=== PATIENT | male | born 1990 | race Caucasian/White ===

== ENCOUNTER 2017-07-10 08:52 | Emergency (ER) | payer OTHER ==
[~2017-07-10] VITALS: Ht 182.9 cm; Wt 100.2 kg
[2017-07-10] MEDS ORDERED: IV NORMAL SALINE 1,000ML 1,000 ML IV SCH (09:08)
[2017-07-10] MEDS ORDERED: KETOROLAC 15 MG/ML VIAL. ONE (09:11)
--- NOTE | 2017-07-10 09:20 | ED.ADGEN ---
Adult General HPI HPI Patient is a 27-year-old man, history of chronic low back pain after an injury that occurred in 2013, who presents to the emergency department with a complaint of nausea and vomiting that is been persistent since around 9 PM last night. Patient states that his daughter was seen several days ago for similar symptoms, and was diagnosed with food poisoning. He states his symptoms began last night, prior to that had been feeling well, last bowel movement was shortly before nausea and vomiting began, and was normal, states food and fluid , no blood or bile, patient has no surgical history. He denies any fevers, is complaining of chills, generalized body aches and malaise. Denies any abdominal pain. No diarrhea. No focal weakness, numbness, tingling, chest pain, shortness breath, sore throat rhinorrhea, injuries, recent travel or sick surgery, swelling of the extremities, rashes. Last oral intake was last night he ate pizza and then vomited back up, has been sipping on fluids today but has vomited multiple times, at least 9 since this began. Complaining of nausea currently. Review of Systems Review of Systems Constitutional: Denies fever, complaining of chills and generalized malaise. Body aches. Eyes: Denies change in visual acuity, redness, or eye pain [] HENT: Denies nasal congestion or sore throat [] Respiratory: Denies cough or shortness of breath [] Cardiovascular: No additional information not addressed in HPI [] GI: Denies abdominal pain, complaining of nausea, vomiting, no bloody stools or diarrhea. : Denies dysuria or hematuria [] Musculoskeletal: Denies back pain or joint pain . Body aches. [] Integument: Denies rash or skin lesions [] Neurologic: Denies headache, focal weakness or sensory changes [] Endocrine: Denies polyuria or polydipsia [] Current Medications Current Medications Current Medications Medications (Trade) Dose Ordered Sig/Bryn Start Time Stop Time Status Last Admin Dose Admin Ketorolac Tromethamine (Toradol) 15 mg STK-MED ONCE 07/10/17 09:11 07/10/17 09:12 DC Ondansetron HCl (Zofran Odt) 4 mg 1X ONCE 07/10/17 11:10 07/10/17 11:11 DC 07/10/17 10:45 4 MG Ondansetron HCl (Zofran) 4 mg 1X ONCE 07/10/17 09:40 07/10/17 09:41 DC 07/10/17 09:20 4 MG Sodium Chloride 1,000 ml @ 1,000 mls/hr 1X ONCE 07/10/17 10:45 07/10/17 11:44 DC Allergies Allergies Allergies Coded Allergies Type Severity Reaction Last Updated Verified No Known Drug Allergies 07/10/17 No Physical Exam Physical Exam Constitutional: Well developed, well nourished, appears uncomfortable, pale, non -toxic appearance. [] HENT: Normocephalic, atraumatic, bilateral external ears normal, oropharynx moist, no oral exudates, nose normal. [] Eyes: PERRLA, EOMI, conjunctiva normal, no discharge. [] Neck: Normal range of motion, no tenderness, supple, no stridor. [] Cardiovascular:Heart rate regular rhythm, no murmur, S1, S2, rubs or gallops. [] Lungs & Thorax: Bilateral breath sounds clear to auscultation, no wheezing, rhonchi, rales. No chest or crepitus or tenderness. [] Abdomen: Bowel sounds normal, soft, no tenderness, no rebound, rigidity, no guarding, no masses, no pulsatile masses. [] Skin: Warm, dry, no erythema, no rash. [] Back: No tenderness, no CVA tenderness. [] Extremities: No tenderness, no cyanosis, no clubbing, ROM intact, no edema. Negative Homans sign. [] Neurologic: Alert and oriented X 3, normal motor function, normal sensory function, no focal deficits noted. [] Psychologic: Affect normal, judgement normal, mood normal. [] Current Patient Data Vital Signs Vital Signs Date Time Temp Pulse Resp B/P (MAP) Pulse Ox O2 Delivery O2 Flow Rate FiO2 07/10/17 11:22 86 16 103/39 (60) 99 Room Air 07/10/17 08:52 98.7 Lab Results Laboratory Tests Test 07/10/17 09:18 07/10/17 10:25 White Blood Count 13.6 x10^3/uL (4.0-11.0) H Red Blood Count 4.93 x10^6/uL (4.30-5.70) Hemoglobin 15.1 g/dL (13.0-17.5) Hematocrit 43.8 % (39.0-53.0) Mean Corpuscular Volume 89 fL (79-100) Mean Corpuscular Hemoglobin 31 pg (25-35) Mean Corpuscular Hemoglobin Concent 34 g/dL (31-37) Red Cell Distribution Width 13.0 % (11.5-14.5) Platelet Count 223 x10^3/uL (140-400) Neutrophils (%) (Auto) 90 % (31-73) H Lymphocytes (%) (Auto) 4 % (24-48) L Monocytes (%) (Auto) 5 % (0-9) Eosinophils (%) (Auto) 1 % (0-3) Basophils (%) (Auto) 0 % (0-3) Neutrophils # (Auto) 12.2 x10^3uL (1.8-7.7) H Lymphocytes # (Auto) 0.6 x10^3/uL (1.0-4.8) L Monocytes # (Auto) 0.7 x10^3/uL (0.0-1.1) Eosinophils # (Auto) 0.1 x10^3/uL (0.0-0.7) Basophils # (Auto) 0.0 x10^3/uL (0.0-0.2) Sodium Level 138 mmol/L (136-145) Potassium Level 3.6 mmol/L (3.5-5.1) Chloride Level 103 mmol/L (98-107) Carbon Dioxide Level 27 mmol/L (21-32) Anion Gap 8 (6-14) Blood Urea Nitrogen 20 mg/dL (8-26) Creatinine 1.0 mg/dL (0.7-1.3) Estimated GFR (Cockcroft-Gault) 91.0 BUN/Creatinine Ratio 20 (6-20) Glucose Level 110 mg/dL (70-99) H Calcium Level 8.0 mg/dL (8.5-10.1) L Total Bilirubin 0.6 mg/dL (0.2-1.0) Aspartate Amino Transferase (AST) 35 U/L (15-37) Alanine Aminotransferase (ALT) 64 U/L (16-63) H Alkaline Phosphatase 37 U/L (46-116) L Total Protein 7.1 g/dL (6.4-8.2) Albumin 3.5 g/dL (3.4-5.0) Albumin/Globulin Ratio 1.0 (1.0-1.7) Lipase 85 U/L (73-393) Urine Collection Type Unknown Urine Color Maritza Urine Clarity Clear Urine pH 5.5 Urine Specific [place] 1.025 Urine Protein Neg (NEG-TRACE) Urine Glucose (UA) Neg mg/dL (NEG) Urine Ketones (Stick) Neg mg/dL (NEG) Urine Blood Neg (NEG) Urine Nitrite Neg (NEG) Urine Bilirubin Neg (NEG) Urine Urobilinogen Dipstick 0.2 mg/dL (0.2 mg/dL) Urine Leukocyte Esterase Neg (NEG) Urine RBC Rare /HPF (0-2) Urine WBC Rare /HPF (0-4) Urine Squamous Epithelial Cells Occ /LPF Urine Bacteria 0 /HPF (0-FEW) Urine Mucus Mod /LPF Urine Opiates Screen Neg (NEG) Urine Methadone Screen Neg (NEG) Urine Barbiturates Neg (NEG) Urine Phencyclidine Screen Neg (NEG) Urine Amphetamine/Methamphetamine Neg (NEG) Urine Benzodiazepines Screen Neg (NEG) Urine Cocaine Screen Neg (NEG) Urine Cannabinoids Screen Neg (NEG) Urine Ethyl Alcohol Neg (NEG) EKG EKG ECG: Rhythm strip: Heart rate 94 beats/minute, no ectopy. As interpreted by me. [] Radiology/Procedures Radiology/Procedures [][address] [address] IMAGING REPORT Signed PATIENT: TANNER GUILLEN ACCOUNT: [id number] : 1990 LOCATION: ER AGE: 27 SEX: M EXAM STATUS: PRE ER ORD. PHYSICIAN: TON MASON DO REASON: N/V PROCEDURE: ACUTE ABDOMEN SERIES Acute abdominal series with single view chest 07/10/2017 at 0928 hours Indication: Nausea and vomiting Comparison: None available Technique: Single frontal view of the chest, supine views of the abdomen and an upright abdominal film are provided. Findings: Cardiomediastinal silhouette is within normal limits. No pleural effusions, pulmonary vascular congestion or pneumothorax. The lungs are clear. Osseous structures are normal. There is no free intraperitoneal air. No dilated loops of small or large bowel. No abnormal calcifications identified within the abdomen or pelvis. Impression: No acute cardiopulmonary process. Nonobstructive bowel gas pattern. DICTATED AND SIGNED BY: JOHN LIMON MD DATE: 07/10/17932 CC: TON MASON DO ~ Course & Med Decision Making Course & Med Decision Making Pertinent Labs and Imaging studies reviewed. (See chart for details) Patient received IV fluids, antiemetics, laboratory studies, acute abdominal series. No concerning signs were identified on imaging, laboratory studies reveal a mild leukocytosis and no other concerning abnormalities. On reevaluation, after receiving 2 L of fluid, and Zofran, patient states that his lightheadedness is now resolved, and he is feeling much better. No further vomiting in the ED, states nausea significantly improved. Is tolerating small amounts of by mouth fluids.Patient does have positive history for sick contacts , discussed with the patient this may be a viral illness. Patient states he is feeling much better and is ready to go home at this time, we did discuss use of oral Zofran, Bentyl, fluids, with clear liquid diet to be advanced as tolerated , and concerning symptoms that would prompt return to the ED. Patient has plans to drive back home on Thursday, discussed the patient that if he is not improved enough to feel comfortable driving by tomorrow that he should come back to the emergency department for additional evaluation as this would indicate failure of outpatient management. Patient and family at bedside voiced understanding and agreement with these instructions and precautions, patient discharged home in stable condition with prescriptions, plan, and precautions as stated. Final Impression Final Impression [] Problems: Dragon Disclaimer Dragon Disclaimer This electronic medical record was generated, in whole or in part, using a voice recognition dictation system. Departure: Impression: Primary Impression: Nausea and vomiting Disposition: HOME, SELF-CARE Condition: IMPROVED Scripts Dicyclomine Hcl (BENTYL) 10 Mg Capsule 1 CAP PO PRN TID Y for ABD CRAMPING, #12 CAP 0 Refills Prov: TON MASON DO 07/10/17 Ondansetron Hcl (ZOFRAN) 4 Mg Tablet 4 MG PO PRN Q6-8HRS Y for NAUSEA, #12 Prov: TON MASON DO 07/10/17 TON MASON DO Jul 10, 2017 09:20
--- NOTE | 2017-07-10 09:36 | RAD ---
Acute abdominal series with single view chest 07/10/2017 at 0928 hours Indication: Nausea and vomiting Comparison: None available Technique: Single frontal view of the chest, supine views of the abdomen and an upright abdominal film are provided. Findings: Cardiomediastinal silhouette is within normal limits. No pleural effusions, pulmonary vascular congestion or pneumothorax. The lungs are clear. Osseous structures are normal. There is no free intraperitoneal air. No dilated loops of small or large bowel. No abnormal calcifications identified within the abdomen or pelvis. Impression: No acute cardiopulmonary process. Nonobstructive bowel gas pattern.
[2017-07-10] MEDS ORDERED: ONDANSETRON PF 4 MG/2 ML VIAL. IV ONE (09:40)
[2017-07-10] MEDS ORDERED: KETOROLAC 30 MG/ML VIAL. IV ONE (09:40)
[2017-07-10 09:45] LABS: ALBUMIN 3.5 g/dL (3.4-5.0); POTASSIUM 3.6 mmol/L (3.5-5.1); TOTAL BILIRUBIN 0.6 mg/dL (0.2-1.0); TOTAL PROTEIN 7.1 g/dL (6.4-8.2)
[2017-07-10 09:50] LABS: BASO % 0 % (0-3); EOS # 0.1 x10^3/uL (0.0-0.7); EOS % 1 % (0-3); HEMATOCRIT 43.8 % (39.0-53.0); HEMOGLOBIN 15.1 g/dL (13.0-17.5); LYMPH # 0.6 x10^3/uL (1.0-4.8); LYMPH % 4 % (24-48); MEAN CORPUSCULAR HEMOGLOBIN 31 pg (25-35); MEAN CORPUSCULAR HGB CONC 34 g/dL (31-37); MEAN CORPUSCULAR VOLUME 89 fL (79-100); MONO # 0.7 x10^3/uL (0.0-1.1); MONO % 5 % (0-9); NEUT # 12.2 x10^3uL (1.8-7.7); NEUT % 90 % (31-73); PLATELET COUNT 223 x10^3/uL (140-400); RED BLOOD COUNT 4.93 x10^6/uL (4.30-5.70); WHITE BLOOD COUNT 13.6 x10^3/uL (4.0-11.0)
[2017-07-10] MEDS ORDERED: IV NORMAL SALINE 1,000ML 1,000 ML IV ONE ×2 (10:30→10:45)
[2017-07-10 10:46] LABS: AMPHETAMINE/METHAMPHETAMINE NEG (NEG); BARBITURATES NEG (NEG); BENZODIAZEPINES NEG (NEG); CANNABINOIDS NEG (NEG); COCAINE NEG (NEG); METHADONE NEG (NEG); OPIATES NEG (NEG); PHENCYCLIDINE NEG (NEG)
[2017-07-10 10:48] LABS: BACTERIA,URINE 0 /HPF (0-FEW); BILIRUBIN,URINE NEG (NEG); CLARITY,URINE CLEAR; COLOR,URINE AMBER; GLUCOSE,URINE NEG (NEG); NITRITE,URINE NEG (NEG); RBC,URINE RARE /HPF (0-2); SQUAMOUS EPITHELIAL CELL,UR OCC /LPF; UROBILINOGEN,URINE 0.2 mg/dL (0.2 mg/dL); WBC,URINE RARE /HPF (0-4)
[2017-07-10] MEDS ORDERED: DICY10CA53 PO (11:09)
[2017-07-10] MEDS ORDERED: ONDA4TAB7 PO (11:09)
[2017-07-10] MEDS ORDERED: ONDANSETRON ODT 4 MG TAB.RAPDIS PO ONE (11:10)
[2017-07-10 11:22] VITALS: BP 103/39
== END 2017-07-10 11:22 | disposition home or self-care (01) ==
LOC: ER 08:52
DX: R11.2 Nausea with vomiting, unspecified (principal); G89.29 Other chronic pain; M79.1 Myalgia; R53.81 Other malaise
CPT/HCPCS: 36415; 74022; 80053; 80307; 81001; 83690; 85025; 96361; 96374; 96375; 99285; J1885; J2405; Q0162; G0479; J7030